=== PATIENT | female | born 1985 | race Hispanic/Latino ===

== ENCOUNTER 2022-06-02 10:30 | Outpatient (CLI) | payer OTHER | END 2022-06-02 10:31 | disposition home or self-care (01) | LOC: MRI 10:30 | DX: S33.5XXA Sprain of ligaments of lumbar spine, initial encounter (principal); M47.816 Spondylosis without myelopathy or radiculopathy, lumbar region; M47.815 Spondylosis without myelopathy or radiculopathy, thoracolumbar region; M47.817 Spondylosis without myelopathy or radiculopathy, lumbosacral region | CPT/HCPCS: 72148 ==

== ENCOUNTER 2025-04-06 12:20 | Emergency (ER) | payer SELFPAY ==
[~2025-04-06 12:20] MED LIST: Iopamidol-370 76% 500 ML MDV (1 ML CHARGE) ONE
[2025-04-06] MEDS ORDERED: Ondansetron PF 4 MG/2 ML Vial ONE ×3 (12:34→20:49)
[2025-04-06] MEDS ORDERED: Ketorolac Tromethamine 30 MG (1 mL) VIAL ONE (12:34)
[2025-04-06 12:48] LABS: #Basophils 0.06 10x3/uL (0.0-0.2); #Eosinophils 0.40 10x3/uL (0.0-0.7); #Monocytes 1.40 10x3/uL (0.11-0.59); #Neutrophils 10.80 10x3/uL (1.40-6.50); %Basophils 0.4 % (0.0-1.0); %Eosinophils 2.6 % (0.0-10.0); %Lymphocytes 18.6 % (21.0-51.0); %Monocytes 9.0 % (0.0-10.0); %Neutrophils 69.0 % (42.0-75.0); Hematocrit 39.9 % (36.0-47.0); Hemoglobin 12.7 g/dL (12.0-16.0); Mean Corpuscular Hemoglobin 25.6 pg (27.0-31.0); Mean Corpuscular Volume 80.3 fL (78.0-98.0); Platelet Count 312 10x3/uL (130-400); Red Blood Cell (RBC) Count 4.97 mill/uL (4.20-5.40); White Blood Cell (WBC) Count 15.63 10x3/uL (4.8-10.8)
[2025-04-06 13:15] LABS: ALT (SGPT) 16 U/L (Less than 34); AST (SGOT) 20 U/L (11-34); Albumin 4.1 g/dL (3.1-4.5); Alkaline Phosphatase 98 U/L (40-110); Anion Gap 17 mmol/L (10-20); BUN (Urea Nitrogen) 12 mg/dL (7.0-18.7); Bilirubin, Total 0.8 mg/dL (0.3-1.2); Calc. Creatinine Clearance 0 mL/min (70-130); Calcium 9.4 mg/dL (7.8-10.44); Carbon Dioxide 21 mmol/L (22-29); Chloride 104 mmol/L (98-107); Globulin 3.4 g/dL (2.4-3.5); Glucose 118 mg/dL (70-105); Lipase 13 U/L (8-78); Magnesium 1.7 mg/dL (1.6-2.6); Potassium 3.4 mmol/L (3.5-5.1); Sodium 139 mmol/L (136-145)
[2025-04-06 13:41] LABS: BHCG - Serum Negative (NEGATIVE); Pregs Control Background? CLEAR/WHITE (CLR/WHITE); Pregs Control Bar Appear? YES (CONTROL BAR)
[2025-04-06] MEDS ORDERED: cefTRIAXone (ROCEPHIN) 2 GM VIAL ONE (15:37)
[2025-04-06 15:50] LABS: CAUTI Indications for Culture Pelvic or flank pain; Glucose, Urine (Dipstick) Normal (Negative); Leukocyte 75 Leu/uL (Negative); Protein, Urine (Dipstick) 10 mg/dL (Neg-Trace); RBC/HPF Greater than 50 HPF (0-3); Specific Gravity, Urine 1.027 (1.002-1.036); WBC/HPF Greater than 50 HPF (0-3)
[2025-04-06 15:54] LABS: Bacteria/HPF 1+ HPF (None Seen)
[2025-04-06 15:56] LABS: Urine Culture Reflex Yes Yes
[2025-04-06] MEDS ORDERED: metroNIDAZOLE 500 MG (100 mL) BAG ONE (16:38)
== END 2025-04-06 21:18 | disposition short-term general hospital (02) ==
LOC: ERS 12:20
DX: E27.9 Disorder of adrenal gland, unspecified (principal); R07.9 Chest pain, unspecified; Z32.02 Encounter for pregnancy test, result negative
CPT/HCPCS: 36415; 71045; 71275; 74177; 76856; 80053; 81001; 83605; 83690; 83735; 84484; 84703; 85025; 85379; 87040; 87086; 93005; 94760; 96361; 96365; 96366; 96367; 96375; 96376; J0696; J1885; J2270; J2405; J2550; Q9967